=== PATIENT | male | born 1980 | race African-American/Black ===

== ENCOUNTER 2018-08-08 15:12 | Emergency (ER) | payer BC ==
--- NOTE | 2018-08-08 15:43 | PDOC ---
Rapid Medical Evaluation Time Seen by Provider: 08/08/18 15:39 Medical Evaluation: 08/08/18 15:39 Pt presents to the ED for alcohol dependency. Pt states he drinks approximately one bottle of whisky a day. Pt requesting detox at this time. Last drink was this morning. Exam: NAD, ambulatory. No fascilations noted Orders: Labs, urine, utox Pt to proceed to the ED for further evaluation Discharge Disposition - Diagnosis Alcohol dependence - Referrals - Patient Instructions - Post Discharge Activity
[2018-08-08 15:47] VITALS: BP 120/64; PULSE 82; TEMP 98
[2018-08-08 16:07] LABS: BASO % 0.5 % (0-2.0); HEMATOCRIT 42.4 % (35.4-49); HEMOGLOBIN 14.8 GM/dL (11.7-16.9); MCH 36.7 pg (25.7-33.7); MCHC 34.8 g/dl (32.0-35.9); MEAN CELL VOLUME 105.5 fl (80-96); MEAN PLT VOLUME 7.5 fl (7.5-11.1); MONO % 12.6 % (3.8-10.2); NEUT % 62.9 % (42.8-82.8); PLATELET COUNT 234 K/MM3 (134-434); RBC 4.02 M/mm3 (4.00-5.60); RDW 13.4 % (11.9-15.9); WHITE BLOOD COUNT 4.3 K/mm3 (4.0-10.0)
[2018-08-08 16:25] LABS: ALBUMIN 4.1 g/dl (3.4-5.0); ALK PHOS 77 U/L (45-117); ANION GAP 9 MMOL/L (8-16); BILIRUBIN,TOTAL 0.3 mg/dL (0.2-1); BLOOD UREA NITROGEN 18 mg/dL (7-18); CALCIUM 8.7 mg/dL (8.5-10.1); CHLORIDE 101 mmol/L (98-107); CO2 28 mmol/L (21-32); CREATININE 0.9 mg/dL (0.55-1.3); GLUCOSE,RANDOM 111 mg/dL (74-106); POTASSIUM 4.1 mmol/L (3.5-5.1); SGOT/AST 38 U/L (15-37); SGPT/ALT 23 U/L (13-61); SODIUM 138 mmol/L (136-145); TOT PROT 7.9 g/dl (6.4-8.2)
--- NOTE | 2018-08-08 17:09 | PDOC ---
History of Present Illness - General Chief Complaint: Alcohol intoxication Stated Complaint: DETOX Time Seen by Provider: 08/08/18 15:39 History Source: Patient Exam Limitations: No Limitations - History of Present Illness Initial Comments: 08/08/18 17:12 38-year-old male sent over by his outpatient rehabilitation counselor since he continues to drink despite using an outpatient program. Patient denies any discomfort but states he feels under the weather with no specific complaints. Patient denies other drug use or any other complaints. Timing/Duration: intermittent Severity: mild Associated Symptoms: reports: other Past History - Travel Traveled outside of the country in the last 30 days: No Close contact w/someone who was outside of country & ill: No - Past Medical History Allergies/Adverse Reactions: Allergies Allergy/AdvReac Type Severity Reaction Status Date / Time No Known Allergies Allergy Verified 08/08/18 15:44 COPD: No CHF: No Psychiatric Problems: Yes (etoh, marijuana) - Suicide/Smoking/Psychosocial Hx Smoking History: Current every day smoker Number of Cigarettes Smoked Daily: 20 Information on smoking cessation initiated: No Hx Alcohol Use: No Drug/Substance Use Hx: No Patient Lives Alone: No Lives with/in: spouse/SO Review of Systems - Review of Systems Able to Perform ROS?: Yes Constitutional: No: Symptoms Reported HEENTM: No: Symptoms Reported Respiratory: No: Symptoms reported Cardiac (ROS): No: Symptoms Reported ABD/GI: No: Symptoms Reported : No: Symptoms Reported Musculoskeletal: No: Symptoms Reported Integumentary: No: Symptoms Reported Neurological: No: Symptoms reported Endocrine: No: Symptoms Reported Hematologic/Lymphatic: No: Symptoms Reported *Physical Exam - Vital Signs Last Vital Signs Temp Pulse Resp BP Pulse Ox 98.0 F 82 16 120/64 100 08/08/18 15:44 08/08/18 15:44 08/08/18 15:44 08/08/18 15:44 08/08/18 15:44 - Physical Exam General Appearance: Yes: Nourished, Appropriately Dressed, Alcohol on Breath. No: Apparent Distress, Intoxicated HEENT: negative: Pale Conjunctivae Neck: positive: Supple Respiratory/Chest: positive: Lungs Clear, Normal Breath Sounds. negative: Respiratory Distress, Accessory Muscle Use Cardiovascular: positive: Regular Rhythm, Regular Rate. negative: Murmur Gastrointestinal/Abdominal: positive: Soft. negative: Tenderness Musculoskeletal: negative: CVA Tenderness Extremity: positive: Normal Capillary Refill. negative: Pedal Edema Integumentary: positive: Normal Color, Warm, Moist Neurologic: positive: Motor Strength 5/5 (ambulatory) Moderate Sedation - Procedure Monitoring Vital Signs: Procedure Monitoring Vital Signs Temperature 98.0 F 08/08/18 15:44 Pulse Rate 82 08/08/18 15:44 Respiratory Rate 16 08/08/18 15:44 Blood Pressure 120/64 08/08/18 15:44 O2 Sat by Pulse Oximetry (%) 100 08/08/18 15:44 ED Treatment Course - LABORATORY CBC & Chemistry Diagram: 08/08/18 15:49 08/08/18 15:49 - ADDITIONAL ORDERS Additional order review: Laboratory Results 08/08/18 15:49 Sodium 138 Potassium 4.1 Chloride 101 Carbon Dioxide 28 Anion Gap 9 BUN 18 Creatinine 0.9 Creat Clearance w eGFR > 60 Random Glucose 111 H Calcium 8.7 Total Bilirubin 0.3 AST 38 H ALT 23 Alkaline Phosphatase 77 Total Protein 7.9 Albumin 4.1 Alcohol, Quantitative 123.9 H 08/08/18 15:49 RBC 4.02 MCV 105.5 H MCHC 34.8 RDW 13.4 MPV 7.5 Neutrophils % 62.9 Lymphocytes % 23.0 Monocytes % 12.6 H Eosinophils % 1.0 Basophils % 0.5 Medical Decision Making - Medical Decision Making 08/08/18 17:16 CC: pt requesting detox for etoh use Exam: vss, Plan:labs, urine and will send to [facility] 08/08/18 18:00 Laboratory Tests 08/08/18 08/08/18 08/08/18 15:49 15:49 16:43 WBC 4.3 Hgb 14.8 Hct 42.4 MCV 105.5 H MCH 36.7 H Absolute Neuts (auto) 2.7 Neutrophils % 62.9 Monocytes % 12.6 H Sodium 138 Potassium 4.1 Chloride 101 Carbon Dioxide 28 Anion Gap 9 BUN 18 Creatinine 0.9 Creat Clearance w eGFR > 60 Random Glucose 111 H Calcium 8.7 Total Bilirubin 0.3 AST 38 H ALT 23 Alkaline Phosphatase 77 Total Protein 7.9 Albumin 4.1 Urine Nitrite Ur Leukocyte Esterase Opiates Screen Negative Methadone Screen Negative Barbiturate Screen Negative Phencyclidine Screen Negative Ur Amphetamines Screen Negative MDMA (Ecstasy) Screen Negative Benzodiazepines Screen Negative Cocaine Screen Negative Alcohol, Quantitative 123.9 H 08/08/18 17:05 WBC Hgb Hct MCV MCH Absolute Neuts (auto) Neutrophils % Monocytes % Sodium Potassium Chloride Carbon Dioxide Anion Gap BUN Creatinine Creat Clearance w eGFR Random Glucose Calcium Total Bilirubin AST ALT Alkaline Phosphatase Total Protein Albumin Urine Nitrite Negative Ur Leukocyte Esterase Negative Opiates Screen Methadone Screen Barbiturate Screen Phencyclidine Screen Ur Amphetamines Screen MDMA (Ecstasy) Screen Benzodiazepines Screen Cocaine Screen Alcohol, Quantitative Patient will be sent to [facility] with security *DC/Admit/Observation/Transfer Diagnosis at time of Disposition: Alcohol dependence - Discharge Dispostion Disposition: HOME Condition at time of disposition: Good - Referrals Referrals: Katiana Sharma MD [Primary Care Provider] - - Patient Instructions Printed Discharge Instructions: DI for Alcohol Abuse Additional Instructions: Please follow the program as instructed - Post Discharge Activity
[2018-08-08 17:22] LABS: URINE APPEARANCE CLEAR; URINE BILIRUBIN NEGATIVE (<2.0 mg/dL); URINE COLOR YELLOW; URINE GLUCOSE (UA) NEGATIVE (NEGATIVE); URINE KETONE NEGATIVE (NEGATIVE); URINE LEUK ESTERASE NEGATIVE (NEGATIVE); URINE NITRITE NEGATIVE (NEGATIVE); URINE PROTEIN NEGATIVE (NEGATIVE)
[2018-08-08 17:49] LABS: COCAINE, UR NEGATIVE ng/ml (CUTOFF=300); METHADONE, UR NEGATIVE ng/ml (CUTOFF=300); OPIATES, URI NEGATIVE ng/ml (CUTOFF=300); PHENCYCLIDINE,URINE NEGATIVE ng/ml (CUTOFF=25); URINE AMPHETAMINES NEGATIVE ng/ml (CUTOFF=500); URINE BARBITURATES NEGATIVE ng/ml (CUTOFF=200); URINE BENZODIAZEPINES NEGATIVE ng/ml (CUTOFF=200)
[2018-08-08 18:21] LABS: MACROCYTOSIS 2+; PLATELET ESTIMATE ADEQUATE
== END 2018-08-08 18:08 | disposition home or self-care (01) ==
LOC: JER 15:12
DX: F10.220 Alcohol dependence with intoxication, uncomplicated (principal); Y90.6 Blood alcohol level of 120-199 mg/100 ml; F17.210 Nicotine dependence, cigarettes, uncomplicated
CPT/HCPCS: 36415; 80053; 80307; 81003; 85025; 86593; 87389; 87491; 87591; 99281-25

== ENCOUNTER 2018-08-08 18:55 | Inpatient (IN) | payer BC ==
[2018-08-08 20:05] VITALS: BMI 23.2
--- NOTE | 2018-08-08 21:26 | HP ---
"CIWA Score Nausea/Vomitin-Mild Nausea/No Vomiting Muscle Tremors: 1-None Visible, but [place] Anxiety: 3 Agitation: 3 Paroxysmal Sweats: 3 Orientation: 0-Oriented Tacttile Disturbances: 0-None Auditory Disturbances: 0-None Visual Disturbances: 0-None Headache: 2-Mild CIWA-Ar Total Score: 13 - Admission Criteria OASAS Guidelines: Admission for Medically Managed Detox: Requires at least one of the followin. CIWA greater than 12 2. Seizures within the past 24 hours 3. Delirium tremens within the past 24 hours 4. Hallucinations within the past 24 hours 5. Acute intervention needed for co occurring medical disorder 6. Acute intervention needed for co occurring psychiatric disorder 7. Severe withdrawal that cannot be handled at a lower level of care (continued vomiting, continued diarrhea, abnormal vital signs) requiring intravenous medication and/or fluids 8. Patient presents the following: CIWA greater than 12 Admission Criteria Met: Admission criteria met Admission ROS [facility] - [facility] Chief Complaint: C/O WORSENING WITHDRAWAL SX'S. SEEKING DETOX TXMENT Allergies/Adverse Reactions: Allergies Allergy/AdvReac Type Severity Reaction Status Date / Time No Known Allergies Allergy Verified 08/08/18 15:44 History of Present Illness: 38 Y.O. MALE WITH HX/O ALCOHOLISM AND CANNABIS DEPENDENCE HERE FOR DETOX.CLIENT WAS REFERRED BY HIS OUTPATIENT PROGRAM [facility]. HE REPORTS THIS IS HIS FIRST TIME SEEKING INPATIENT TXMENT FOR HIS SUBSTANCE ABUSE. SEEN IN [facility] ER EARLIER HE WENT THERE FIRST SEEKING TXMENT. PRESENTS WITH C/O WORSENING WITHDRAWAL SX'S. CIWA 13. DENIES PMHX AND PSYCH HX. REPORTS LONGEST CLEAN TIME 5 YEARS WHILE INCARCERATED RELAPSING 04/2016.DENIES PAST /PRESENT SI/HI, AVH, DT 'S BUT HAS BLACKED OUT SEVERAL TIME BEFORE. LIVES WITH FAMILY, SELF EMPLOYED, ON [place]. Search Terms: ZAID MIX, 1980 Search Date: 08/08/2018 09:17:26 PM The Drug Utilization Report below displays all of the controlled substance prescriptions, if any, that your patient has filled in the last twelve months. The information displayed on this report is compiled from pharmacy submissions to the Department, and accurately reflects the information as submitted by the pharmacies. This report was requested by: Noman Jonas | Reference #: [id number] There are no results for the search terms that you entered. LABS FROM [facility] NOTED WILL NOT REPEAT Exam Limitations: No Limitations - Ebola screening Have you traveled outside of the country in the last 21 days: No (N) Have you had contact with anyone from an Ebola affected area: No Have you been sick,other than usual withdrawal symptoms: No Do you have a fever: No - Review of Systems Constitutional: Chills, Loss of Appetite, Malaise, Night Sweats, Changes in sleep EENT: reports: Dental Problems (PAIN) Respiratory: reports: No Symptoms reported Cardiac: reports: No Symptoms Reported GI: reports: Nausea, Poor Appetite, Poor Fluid Intake, Vomiting : reports: No Symptoms Reported Musculoskeletal: reports: Back Pain (CHRONIC) Integumentary: reports: No Symptoms Reported Neuro: reports: Tremors Endocrine: reports: No Symptoms Reported Hematology: reports: No Symptoms Reported Psychiatric: reports: Orientated x3, Anxious Other Systems: Reviewed and Negative Patient History - Patient Medical History Hx Anemia: No Hx Asthma: No Hx Chronic Obstructive Pulmonary Disease (COPD): No Hx Cancer: No Hx Cardiac Disorders: No Hx Congestive Heart Failure: No Hx Hypertension: No Hx Hypercholesterolemia: No Hx Pacemaker: No HX Cerebrovascular Accident: No Hx Seizures: No Hx Dementia: No Hx Diabetes: No Hx Gastrointestinal Disorders: No Hx Liver Disease: No Hx Genitourinary Disorders: No Hx Sexually Transmitted Disorders: No Hx Renal Disease (ESRD): No Hx Thyroid Disease: No Hx Human Immunodeficiency Virus (HIV): No Hx Hepatitis C: No Hx Depression: No Hx Suicide Attempt: No Hx Bipolar Disorder: No Hx Schizophrenia: No Other Medical History: DENIES - Patient Surgical History Past Surgical History: Yes Hx Abdominal Surgery: Yes (HERNIA REPAIR) Hx Orthopedic Surgery: Yes ( R RING FINGER) Anesthesia Reaction: No - PPD History Previous Implant?: Yes Documented Results: Negative w/o proof Implanted On Prior R Admission?: No PPD to be Administered?: Yes - Smoking Cessation Smoking history: Current every day smoker Aproximately how many cigarettes per day: 20 Cigars Per Day: 0 Hx Chewing Tobacco Use: No Initiated information on smoking cessation: Yes 'Breaking Loose' booklet given: 08/08/18 - Substance & Tx. History Hx Alcohol Use: Yes Hx Substance Use: Yes Substance Use Type: Alcohol, Marijuana Hx Substance Use Treatment: Yes ([facility] OUT PATIENT) - Substances Abused LIQUOR Route: Oral Frequency: Daily Amount used: 2 PINT Age of first use: 10 Date of Last Use: 08/08/18 Family Disease History - Family Disease History Family History: Denies Admission Physical Exam [facility] - Vital Signs Vital Signs: Vital Signs - 24 hr 08/08/18 20:03 Temperature 97 F L Pulse Rate 88 Respiratory 18 Rate Blood Pressure 130/75 - Physical General Appearance: Yes: Appropriately Dressed, Mild Distress, Tremorous (FELT) HEENTM: Yes: EOMI, Normocephalic, Normal Voice, SHANIKA, Pharynx Normal Respiratory: Yes: Chest Non-Tender, Lungs Clear, Normal Breath Sounds, No Respiratory Distress, No Accessory Muscle Use Neck: Yes: No masses,lesions,Nodules, Supple, Trachea in good position Breast: Yes: Breast Exam Deferred Cardiology: Yes: Regular Rhythm, Regular Rate, S1, S2 Abdominal: Yes: Normal Bowel Sounds, Non Tender, Soft Genitourinary: Yes: Other (NO C/O) Back: Yes: Normal Inspection Musculoskeletal: Yes: full range of Motion, Gait Steady, Back pain (CHRONIC) Extremities: Yes: Normal Capillary Refill, Normal Range of Motion, Non-Tender, Tremors (FELT) Neurological: Yes: director of industrial relations II-XII NML intact, Fully Oriented, Alert, Motor Strength 5/5, Depressed Affect Integumentary: Yes: Dry, Warm Lymphatic: Yes: Within Normal Limits - Diagnostic (1) Alcohol dependence with uncomplicated withdrawal Current Visit: Yes Status: Acute (2) Nicotine dependence Current Visit: Yes Status: Chronic Qualifiers: Nicotine product type: cigarettes Substance use status: uncomplicated Qualified Code(s): F17.210 - Nicotine dependence, cigarettes, uncomplicated (3) At risk for dehydration due to poor fluid intake Current Visit: Yes Status: Acute (4) Substance induced mood disorder Current Visit: Yes Status: Suspected (5) Substance-induced sleep disorder Current Visit: Yes Status: Suspected (6) Depressed affect Current Visit: Yes Status: Suspected Cleared for Admission [facility] - Detox or Rehab [facility] Level of Care: Medically Managed Detox Regimen/Protocol: Librium Claeared for Rehab Admission: No S Breath Alcohol Content Breath Alcohol Content: 0.014 Urine Drug Screen - Results Drug Screen Negative: No Urine Drug Screen Results: THC-Marijuana"
[2018-08-08] MEDS ORDERED: guaiFENesin/D-METHORPHAN HB 10 ML UNIT-DOSE CUPS PO PRN (21:42)
[2018-08-08] MEDS ORDERED: NICOTINE POLACRILEX 2 MG GUM BC PRN (21:42)
[2018-08-08] MEDS ORDERED: MENTHOL/PHENOL 1 EACH UD MM PRN (21:42)
[2018-08-08] MEDS ORDERED: P-EPHED 60MG/TRIPROLIDI 2.5MG TABLET PO PRN (21:42)
[2018-08-08] MEDS ORDERED: hydrOXYzine PAMOATE 50 MG CAPSULE (FP) PO PRN (21:42)
[2018-08-08] MEDS ORDERED: IBUPROFEN 400 MG TABLET (FP) PO PRN (21:42)
[2018-08-08] MEDS ORDERED: ACETAMINOPHEN 325 MG TABLET (FP) PO PRN (21:42)
[2018-08-08] MEDS ORDERED: MAGNESIUM CITRATE 300 ML BOTTLE PO PRN (21:42)
[2018-08-08] MEDS ORDERED: LOPERAMIDE HCL 2 MG CAPSULE PO PRN (21:42)
[2018-08-08] MEDS ORDERED: MAGNESIUM HYDROX 2400MG/30ML ORAL SUSPENSION 30 ML CUP PO PRN (21:42)
[2018-08-08] MEDS ORDERED: chlordiazePOXIDE HCL 25 MG CAPSULE PO PRN (21:42)
[2018-08-08] MEDS ORDERED: MAG HYDROX/AL HYDROX/SIMETH 30 ML UNIT-DOSE CUP PO PRN (21:42)
[2018-08-08] MEDS: chlordiazePOXIDE HCL 25 MG CAPSULE PO SCH (23:47)
[2018-08-08] MEDS: THIAMINE HCL 100 MG TABLET (FP) PO SCH (23:48)
[2018-08-08] MEDS: MELATONIN 5 MG TABLETS PO PRN (23:48)
[2018-08-09] MEDS: chlordiazePOXIDE HCL 25 MG CAPSULE PO SCH ×4 (05:12→22:01)
[2018-08-09] MEDS: PRENATAL VITAMINS W/ FOLIC ACID TABLET (FP) PO SCH (10:04)
[2018-08-09] MEDS: NICOTINE 21 MG/24 HOURS TOPICAL PATCH TD SCH (10:05)
--- NOTE | 2018-08-09 10:19 | PN ---
S CIWA - CIWA Score Nausea/Vomitin-Mild Nausea/No Vomiting Muscle Tremors: 3 Anxiety: 2 Agitation: 2 Paroxysmal Sweats: 1-Minimal Palms Moist Orientation: 1-Uncertain about Date Tacttile Disturbances: 0-None Auditory Disturbances: 0-None Visual Disturbances: 0-None Headache: 2-Mild CIWA-Ar Total Score: 12 [facility] Progress Note (SOAP) Subjective: tremor sweating abdominal cramping low energy 38 years old male treated at ER for alcohol intoxication medically stabilized for detox at [facility] patient is doing better today poor appetite otherwise ok Objective: 08/09/18 10:17 Vital Signs Temperature 96.7 F L 08/09/18 09:09 Pulse Rate 62 08/09/18 09:09 Respiratory Rate 18 08/09/18 09:09 Blood Pressure 115/68 08/09/18 09:09 O2 Sat by Pulse Oximetry (%) lab see ER lab results Assessment: 08/09/18 10:20 withdrawal sx Plan: continue detox
--- NOTE | 2018-08-09 11:42 | EKG ---
Test Reason : Blood Pressure : / mmHG Vent. Rate : 057 BPM Atrial Rate : 057 BPM P-R Int : 160 ms QRS Dur : 102 ms QT Int : 408 ms P-R-T Axes : 049 064 061 degrees QTc Int : 397 ms SINUS BRADYCARDIA OTHERWISE NORMAL ECG NO PREVIOUS ECGS AVAILABLE Confirmed by NICOLLE LEONARD, SHERMAN ([id number]) on 08/09/2018 11:41:47 AM Referred By: Confirmed By:SHERMAN VALVERDE MD
[2018-08-09] MEDS: MELATONIN 5 MG TABLETS PO PRN (22:01)
[2018-08-09] MEDS: THIAMINE HCL 100 MG TABLET (FP) PO SCH (22:01)
[2018-08-10] MEDS: chlordiazePOXIDE HCL 25 MG CAPSULE PO SCH ×3 (05:05→17:49)
--- NOTE | 2018-08-10 09:37 | PN ---
[facility] CIWA - CIWA Score Nausea/Vomitin-No Nausea/No Vomiting Muscle Tremors: 2 Anxiety: 2 Agitation: 2 Paroxysmal Sweats: 1-Minimal Palms Moist Orientation: 0-Oriented Tacttile Disturbances: 0-None Auditory Disturbances: 0-None Visual Disturbances: 0-None Headache: 1-Very Mild CIWA-Ar Total Score: 8 [facility] Progress Note (SOAP) Subjective: feeling better today would like to begin chemical rehab tomorrow less tremor mild sweating tolerate food and fluid better Objective: 08/10/18 09:36 Vital Signs Temperature 97.2 F L 08/10/18 09:22 Pulse Rate 62 08/10/18 09:22 Respiratory Rate 18 08/10/18 09:22 Blood Pressure 114/71 08/10/18 09:22 O2 Sat by Pulse Oximetry (%) see ER lab Assessment: 08/10/18 09:38 mild withdrawal sx Plan: continue detox discussed risks of alcohol misuse informed avoidable injuries related to alcohol intoxication
[2018-08-10] MEDS: NICOTINE 21 MG/24 HOURS TOPICAL PATCH TD SCH (10:21)
[2018-08-10] MEDS: PRENATAL VITAMINS W/ FOLIC ACID TABLET (FP) PO SCH (10:21)
[2018-08-10 17:30] VITALS: BP 115/65; PULSE 75; TEMP 98.4
[2018-08-10] MEDS ORDERED: chlordiazePOXIDE 5 MG CAPSULE PO SCH (23:00)
[2018-08-11] MEDS ORDERED: chlordiazePOXIDE HCL 10 MG CAPSULE PO SCH (23:00)
== END 2018-08-10 18:35 | disposition home or self-care (01) | DRG 775 ==
LOC: YASAS 18:55 → Y3N 21:39
PROVIDERS: ADMIT Surgery; ATTEND Surgery
PROC: HZ2ZZZZ Detoxification Services for Substance Abuse Treatment (ICD-10-PCS; principal; 2018-08-08)
DX: F10.230 Alcohol dependence with withdrawal, uncomplicated (principal); F17.210 Nicotine dependence, cigarettes, uncomplicated; F19.24 Other psychoactive substance dependence with psychoactive substance-induced mood disorder; F19.282 Other psychoactive substance dependence with psychoactive substance-induced sleep disorder; F32.9 Major depressive disorder, single episode, unspecified; R63.8 Other symptoms and signs concerning food and fluid intake
CPT/HCPCS: 93005; 93010